=== PATIENT | male | born 1965 | race Caucasian/White ===

== ENCOUNTER 2022-05-28 01:15 | Day surgery (SDC) | payer BC, SELFPAY ==
[2022-05-16 13:29] VITALS: BMI 43.6
--- NOTE | 2022-05-16 13:30 | PC.NURSE ---
Report to the Outpatient Waiting Room, entrance under the green pavilion located off [facility], at time _0830_ on date _[id number]_. OR Time: _1030_. Time changes happen often and if your time is changed the preop area will call you the afternoon before. - You and your visitor will be asked to self-screen and do not enter if you have any COVID symptoms. - Only one visitor and NO children visitors are allowed at this time. - The patient visitor is requested to leave or wait in car when not with patient due to restrictions. - A mask is required within the hospital. Patients may have clear liquids (water, carbonated beverages, clear teas, apple juice) until 3 hours prior to surgery with a maximum of 20 ounces. - No food from midnight until time of surgery Take the following medications with a SIP of water the morning of surgery: ____Amlodipine, Duloxetine, Gabapentin, Metoprolol and inhaler. Medications to discontinue per physician Aspirin and Meloxicam Date to take last vhum____[id number] Please no make-up, nail yi, hairspray, perfume, deodorant, or body powder the day of surgery. No jewelry (including any body piercings) or valuables the day of surgery, leave them at home. Please take a shower or bath the night before, or the morning of, surgery with an antibacterial soap. Wear comfortable, loose fitting clothing. - Jewelry must be removed prior to entering the operating room. Rings and piercings that are not removed may be cut off. - The hospital will not accept responsibility for valuables. - Please leave all valuables, including medications, at home the day of surgery. If you are going home after surgery, a licensed truck driver instructor must drive you home. - NO public transportation without another adult. - We recommend that an adult stay with you for 24 hours following discharge. - We also recommend that you do not drive, make important decision, drink alcoholic beverages, or take any drugs that were not prescribed by your health care provider for at least 24 hours after your discharge time. Follow any additional instructions given to you from your surgeon. If you or anyone in your household have experienced Covid symptoms in the past week, please notify your surgeon or the nurse liaison at the phone number below for possible testing. Telephone instructions given to __Patient____and asked if any additional questions and then verbalized understanding. Patient advised to call surgeon office or pre surgery nurse liaison [phone] if any additional questions.
[2022-05-28] VITALS (9 sets, daily range): BP systolic 118–155; BP diastolic 68–89; PULSE 68–82; RESP 14–22; TEMP 36.6–36.8; O2SAT 91–97
[2022-05-28] MEDS: ACETAMINOPHEN 500 MG TABLET 1000 MG PO (08:52)
--- NOTE | 2022-05-28 09:24 | WPDANESEPPF ---
Anes - Initial Pre Proc Eval Procedure: Operation Date: 05/28/22 10:30 Proposed Procedures p Left Arthroscopic Rotator Cuff Repair with Subacromial Decompression - Jeet Gracia MD Date/Time: 05/28/22 09:24 Surgeon: Jeet Gracia MD Pre Op Diagnosis: Partial Tear Left Rot Cuff Patient Data Age: 56 Gender: M Height: 1.75 m Weight: 133 kg Allergies Allergy/AdvReac Type Severity Reaction Status Date / Time No Known Allergies Allergy Verified 05/16/22 13:15 Home Medications Medication Instructions Recorded Confirmed Type amlodipine 10 mg tablet 10 mg PO DAILY 02/25/22 05/16/22 History atorvastatin 80 mg tablet 80 mg PO DAILY 02/25/22 05/16/22 History budesonide-formoterol HFA 160 2 puff inhalation Q12H 02/25/22 05/16/22 History mcg-4.5 mcg/actuation aerosol inhaler (Symbicort) cholecalciferol (vitamin D3) 10 10 mcg PO DAILY 02/25/22 05/16/22 History mcg (400 unit) capsule duloxetine 60 mg capsule,delayed 60 mg PO DAILY 02/25/22 05/16/22 History release fenofibrate 160 mg tablet 160 mg PO DAILY 02/25/22 05/16/22 History fluticasone propionate 50 1 spray intranasal DAILY 02/25/22 05/16/22 History mcg/actuation nasal spray,suspension gabapentin 300 mg capsule 300 mg PO DAILY 02/25/22 05/16/22 History icosapent ethyl 1 gram capsule 2 g PO BID 02/25/22 05/16/22 History (Vascepa) meloxicam 15 mg tablet 15 mg PO DAILY 02/25/22 05/16/22 History metoprolol succinate 50 mg 50 mg PO DAILY 02/25/22 05/16/22 History tablet,extended release 24 hr nitroglycerin 0.4 mg sublingual 0.4 mg sublingual Q5M PRN Chest 02/25/22 05/16/22 History tablet Pain sildenafil 100 mg tablet 100 mg PO DAILY PRN Sexual Activity 02/25/22 05/16/22 History tadalafil 20 mg tablet 20 mg PO DAILY PRN Sexual Activity 02/25/22 05/16/22 History ticagrelor 60 mg tablet (Brilinta) 60 mg PO Q12H 02/25/22 05/16/22 History tiotropium 2.5 mcg-olodaterol 2.5 2 puff inhalation DAILY 02/25/22 05/16/22 History mcg/actuation mist for inhalation (Stiolto Respimat) topiramate 50 mg tablet 50 mg PO DAILY 02/25/22 05/16/22 History valacyclovir 500 mg tablet 500 mg PO DAILY 02/25/22 05/16/22 History aspirin 81 mg tablet,delayed 81 mg PO DAILY 03/29/22 05/16/22 History release valsartan 320 1 tablet PO DAILY 05/16/22 05/16/22 History mg-hydrochlorothiazide 25 mg tablet Patient hx anesthesia problems: none Family hx anesthesia problems: none Results Review: All pre-operative results and documents have been reviewed as part of the pre-operative evaluation. [facility] Past Medical History Medical History COPD (chronic obstructive pulmonary disease) Coronary artery disease Dysthymic disorder Essential hypertension, benign Herpes genitalis Hyperlipemia Obesities, morbid Other organic sleep apnea Pain, joint, shoulder Primary osteoarthritis, left shoulder (Acromioclavicular joint) Subacromial bursitis of left shoulder joint Social History Social History Smoking packs per day: 1 Smoking cigarettes per day: 20.0 Years smoked: 8 Smoking pack-years: 8.00 Smoking status: Former smoker Tobacco type: cigarettes Alcohol intake: current Drinks per week: 40 Substance use: current Substance use type: marijuana Other substance usage details: daily Living arrangements: with family Spiritual care concerns: No Anes - Eval Final PreProcedure Day of Procedure 05/28/22 09:24 Patient weight: morbidly obese Heart: regular rate and rhythm Lungs: clear to auscultation Airway: Mallampati scale class II and other (chipped front teeth) Neurological: alert and oriented Last oral intake: >/= 8 hours ASA classification: III Emergent: no Anesthetic plan: proceed Anesthesia type and monitoring: general ETT and standard monitoring Results Review: All pre-operative results and d
[2022-05-28] MEDS: LACTATED RINGERS 1,000 ML 30 ML IV CONT ×2 (09:48→14:22)
[2022-05-28] MEDS: KETOROLAC 15 MG/ML VIAL (*BKC) IV PUSH (09:48)
--- NOTE | 2022-05-28 09:49 | SUR.PREOP ---
Patient arrived today with scratches to left forearm. Notified OR 7 and patient was seen by Isa PATEL. Will proceed with surgery.
[2022-05-28] MEDS: ceFAZolin 3 GM/D5W 100 ML 100 ML IVPB (11:14)
--- NOTE | 2022-05-28 11:18 | WPDHPUPDATE1 ---
History and Physical Update Update Date/Time: 05/28/22 11:18 History and Physical has been reviewed, including an updated exam of the patient. There are NO changes in the patient's condition. Risks, benefits, and alternatives have been discussed and questions answered. Patient agrees to proceed with procedure.
[2022-05-28] MEDS: BUPIVACAINE/EPINEPHRINE 0.25% 50 ML VIAL 30 ML INFILTRATE (12:38)
[2022-05-28] MEDS: fentaNYL CITRATE INJ (*CRX) 100 MCG/2 ML VIAL 25 MCG IV PUSH ×4 (14:55→15:32)
--- NOTE | 2022-05-28 15:32 | P.OP_ITS ---
Procedure Note - Detailed Date of Procedure 05/28/22 Pre-op Diagnosis Partial Tear Left Rot Cuff Post-op Diagnosis Other (1. Complete rotator cuff tear 2. Subacromial impingement 3. Biceps tendinosis) Procedure Performed Left shoulder 1. Arthroscopic rotator cuff repair 2. Arthroscopic subacromial decompression 3. Arthroscopic biceps tenodesis Surgeon Jeet Gracia MD [employer] Isa Kilgore PA-C Anesthesia General and Regional ( interscalene block) Findings Anterior tear adjacent to the biceps. Biceps frayed and thus tenodesed. No cartilage issues. Very high grad articular tear with tiny bursal perforation. The tear was marked and degenerative tissue resected, leaving a small tear. Repaired with 2 tunnels and 5 sutures with a rip stop convergence suture. The bicpes was tenodesed with a looped and locked suture from the anterior tunnel, and a second more distal tunnel with 2 additional locked sutures. A large subacromial spur with evidence for impingement was decompressed. Description of Procedure Preoperative antibiotics were given. An interscalene block was administered in the preoperative area. The patient was bought brought to the operating room. A general anesthetic was administered. The patient was carefully positioned in the beach chair position. The head and neck were carefully positioned. The non operative extremity was also carefully positioned. The shoulder was prepped and draped in the usual sterile fashion. Examination was performed. Standard posterior and anterior arthroscopic portals were established. Inflow achieved with the arthroscopic pump using saline and epinephrine. The glenohumeral joint was carefully inspected. The high grade articular tear was debrided and marked with #1 PDS suture. The subscapularis was intact, as was the cartilage and labrum. Attention was turned to the subacromial space. A complete bursectomy was performed. The rotator cuff and footprint were lightly debrided. The biceps was in the tear defect and frayed. Tenodesis was elected and the tendon was tagged and released from the superior labrum. An acromioplasty was performed with the luis eduardo. The tear configuration was carefully assessed. At this point, 2 tunnels were created at the rotator cuff. The ArthroTunneler technique was utilized. Three sutures were passed through each tunnel. All sutures were then passed through the cuff tissue, and biceps as described above. A third tunnel was created to reinforce the biceps tenodesis. All the sutures were tied arthroscopically. The arthroscopic instruments were removed. The wounds were closed with 3-0 Monocryl subcuticular suture and steri strips. There were no complications. A sling was applied and the patient brought to the recovery room. Physician treasury assistant, Isa Kilgore PA-C, required for surgery; including patient positioning, draping, arthroscopic camera operation, maintaining instrument position, suture retrieval, wound closure, and dressing and sling placement. Estimated Blood Loss -20.0 Pathology None sent Complications No immediate complications Condition Stable Disposition PACU [facility] Billing Surgery - Charge Forward: Surgery Billing
[2022-05-28] MEDS: oxyCODONE HCL (*CRX) 5 MG TAB IR PO (16:00)
== END 2022-05-28 16:40 | disposition home or self-care (01) ==
PROVIDERS: Visit Provider Orthopaedic Surgery
PROC: (CPT 29805; principal; 2022-05-28 10:30)
DX: M75.112 Incomplete rotator cuff tear or rupture of left shoulder, not specified as traumatic (principal); M75.42 Impingement syndrome of left shoulder; M75.22 Bicipital tendinitis, left shoulder; J44.9 Chronic obstructive pulmonary disease, unspecified; I25.10 Atherosclerotic heart disease of native coronary artery without angina pectoris; I10 Essential (primary) hypertension; E78.5 Hyperlipidemia, unspecified; G47.39 Other sleep apnea; B00.9 Herpesviral infection, unspecified; Z87.891 Personal history of nicotine dependence; Z79.51 Long term (current) use of inhaled steroids; Z79.01 Long term (current) use of anticoagulants; Z79.82 Long term (current) use of aspirin; E66.01 Morbid (severe) obesity due to excess calories; Z68.41 Body mass index [BMI] 40.0-44.9, adult
CPT/HCPCS: 29827; 29828; 29826; A4565; A9270; J0330; J0690; J1100; J1170; J1885; J2250; J2405; J2704; J3010; J7120